=== PATIENT | male | born 1970 | race Caucasian/White ===

== ENCOUNTER 2017-12-24 15:31 | Emergency (ER) | payer BC ==
--- NOTE | 2017-12-24 15:42 | PDOC ---
Rapid Medical Evaluation Time Seen by Provider: 12/24/17 15:37 Medical Evaluation: Allergies Allergy/AdvReac Type Severity Reaction Status Date / Time No Known Allergies Allergy Verified 04/22/16 10:41 I have performed a brief in-person evaluation of this patient. The patient presents with a chief complaint of: mild anterior chest pain with a heart "flutter" for the past few days. Pertinent physical exam findings: RRR without m/g/r I have ordered the following: labs, EKG, CXR The patient will proceed to the ED for further evaluation.
[2017-12-24 15:49] VITALS: TEMP 98.6; BMI 25.1
--- NOTE | 2017-12-24 16:00 | PDOC ---
History of Present Illness - General Chief Complaint: Chest Pain Stated Complaint: CHEST DISCOMFORT Time Seen by Provider: 12/24/17 15:37 - History of Present Illness Initial Comments: 12/24/17 15:59 47 yo M with h/o DJD and GERD who p/w chest pain. Pt. reports acute palpitations and L sided, sharp chest pain beginning yesterday evening. Chest pain is intermittent, occurring sporadically, lasting for seconds and resolving with no identifiable trigger or alleviator.Reports chest pain at exertion with movement ( moving tables). Chest pain now resolved for past 2-3 hours. States that chest pain is different substernal epigastric pain that pt. has experienced in past. Reports chronic non productive cough and wheezing. Denies F /C, N/V, SOB, orthopnea, abdominal pain, diarrhea, constipation, urinary complaints, weakness, lightheadedness, sensory change. Denies h/o ACS/MO, stent placement, CABG, stress testing. Reports normal holter monitor testing years ago. Reports h/o cardiac palpitations during adolescence with neg workup. Does not f/w cardiology. 10 ppd tobacco use. Occasional alcohol use 1 x /week. Denies illicit drug use. Denies h/o endoscopy. Denies h/o DVT/PE, malignancy, hormonal use, pleuritic chest pain, hemoptysis, leg swelling, recent immobilization/travel, surgery or trauma within 4-6 weeks. 10 cups of tea/day. 16 oz coffe/day. Past History - Past Medical History Allergies/Adverse Reactions: Allergies Allergy/AdvReac Type Severity Reaction Status Date / Time No Known Allergies Allergy Verified 12/24/17 15:46 Home Medications: Ambulatory Orders Clonazepam [Klonopin] 2 mg PO DAILY 01/16/16 Albuterol Sulfate Inhaler - [Ventolin HFA Inhaler -] 2 inh PO Q4H #1 inh Cardiac Disorders: Yes (HEART MURMUR.) COPD: No Psychiatric Problems: Yes (ANXIETY.) - Suicide/Smoking/Psychosocial Hx Smoking History: Current every day smoker Have you smoked in the past 12 months: Yes Number of Cigarettes Smoked Daily: 10 Information on smoking cessation initiated: No 'Breaking Loose' booklet given: 04/22/16 Hx Alcohol Use: Yes (2x week) Drug/Substance Use Hx: No Substance Use Type: Alcohol Review of Systems - Review of Systems Comments:: 12/24/17 15:55 GENERAL/CONSTITUTIONAL: No fever or chills. No weakness. HEAD, EYES, EARS, NOSE AND THROAT: No change in vision. No ear pain or discharge. No sore throat. CARDIOVASCULAR: + chest pain. No shortness of breath RESPIRATORY: No cough, wheezing, or hemoptysis. GASTROINTESTINAL: No nausea, vomiting, diarrhea or constipation. GENITOURINARY: No dysuria, frequency, or change in urination. MUSCULOSKELETAL: No joint or muscle swelling or pain. No neck or back pain. SKIN: No rash NEUROLOGIC: No headache, vertigo, loss of consciousness, or change in strength/ sensation. ENDOCRINE: No increased thirst. No abnormal weight change HEMATOLOGIC/LYMPHATIC: No anemia, easy bleeding, or history of blood clots. ALLERGIC/IMMUNOLOGIC: No hives or skin allergy. *Physical Exam - Vital Signs Last Vital Signs Temp Pulse Resp BP Pulse Ox 98.6 F 74 19 119/80 99 12/24/17 15:46 12/24/17 15:46 12/24/17 15:46 12/24/17 15:46 12/24/17 15:46 - Physical Exam Comments: 12/24/17 15:56 GENERAL: Awake, alert, and fully oriented, in no acute distress HEAD: No signs of trauma, normocephalic, atraumatic EYES: PERRLA, EOMI, sclera anicteric, conjunctiva clear ENT: Hearing grossly normal, nares patent, oropharynx clear without exudates. Moist mucosa NECK: Normal ROM, supple, no lymphadenopathy, JVD, or masses LUNGS: No distress, speaks full sentences, clear to auscultation bilaterally HEART: Regular rate and rhythm, normal S1 and S2, no murmurs, rubs or gallops, peripheral pulses normal and equal bilaterally. ABDOMEN: Soft, nontender, normoactive bowel sounds. No guarding, no rebound. No masses. Neg CVA ttp. EXTREMITIES : Normal inspection, Normal range of motion, no edema. No clubbing or cyanosis. SKIN: Warm, Dry, normal turgor, no rashes or lesions noted ED Treatment Course - LABORATORY CBC & Chemistry Diagram: 12/24/17 15:55 12/24/17 15:55 - ADDITIONAL ORDERS Additional order review: Laboratory Results 12/24/17 12/24/17 16:35 15:55 Sodium 139 Potassium 4.5 Chloride 104 Carbon Dioxide 29 Anion Gap 6 L BUN 16 Creatinine 1.2 Creat Clearance w eGFR > 60 Random Glucose 88 Calcium 8.9 Total Bilirubin 0.3 AST 21 ALT 30 Alkaline Phosphatase 68 Creatine Kinase 115 Troponin I < 0.02 Total Protein 7.2 Albumin 3.8 TSH 1.51 12/24/17 15:55 RBC 4.74 MCV 93.7 MCHC 34.2 RDW 13.5 MPV 8.7 Neutrophils % 60.6 Lymphocytes % 27.6 Monocytes % 10.9 H Eosinophils % 0.6 Basophils % 0.3 Medical Decision Making - Medical Decision Making 12/24/17 16:03 47 yo M with h/o DJD and GERD who arrives from [facility] w/ acute palpitations and intermittent L sided, sharp chest pain beginning yesterday evening. + chest pain at exertion( now resolved for past 2-3 hours).+ chronic non productive cough and wheezing. Denies F/C, N/V, SOB, orthopnea, abdominal pain, diarrhea, constipation, urinary complaints, weakness, lightheadedness, sensory change. Denies h/o ACS/MO, stent placement, CABG, stress testing, or cardiology. Reports normal holter monitor testing years ago. 10 ppd tobacco use. HDS. Physical exam unremarkable. ACS/MO r/o. Will assess for underlying cardiac dysarrythmias vs. electrolyte abnormalities. Differential also includes PNA, COPD exacerbation. Low risk PE based on Weils criteria. Palpitations could be 2/ 2 excessive caffeine intake. ED Course: CBC, CMP, Cardiac Pr, TSH EKG, CXR 12/24/17 16:51 CBC, CMP: Unremarkable EKG: NSR with normal interval duration and axis. No RONNI changes, absent RONNI, or STD. Trop: Neg 12/24/17 17:36 TSH: Unremarkable 12/24/17 18:07 CXR: Unremarkable on preliminary read. Pt. stable and ready for d/c with return precautions. *DC/Admit/Observation/Transfer Diagnosis at time of Disposition: Palpitations Chest pain Qualifiers: Chest pain type: other chest pain Qualified Code(s): R07.89 - Other chest pain ; R07.8 - Other chest pain - Referrals Referrals: Alan Nash MD [Staff Physician] - - Patient Instructions Printed Discharge Instructions: DI for Atypical Chest Pain, DI for Palpitations Additional Instructions: Please return to the emergency department with any new or worsening symptoms or concerns. Please follow up with your primary care physician within 72 hours. Please follow up with cardiology within 1 week. - Post Discharge Activity - Attestations Physician Attestion: 12/24/17 15:56 I attest to the information provided in this note.
--- NOTE | 2017-12-24 16:07 | PDOC ---
Attending Attestation - HPI HPI: 12/24/17 17:18 47 yo male with history of GERD who presents to the ED complaining of chest pain that began yesterday. States his chest pain is intermittent, lasting for seconds at a time, described as a "twinge". He also reports associated palpitations, nonproductive cough and wheezing. He does endorse caffeine consumption- states he drinks 16 oz of coffee and 10 cups of tea daily. No fever , chills, nausea, vomiting, or diaphoresis. No lightheadedness or SOB. Endorses cigarette smoking, no recent travel or long periods of immobilization. - Physicial Exam PE: 12/24/17 17:21 GENERAL: Awake, alert, and fully oriented, in no acute distress HEAD: No signs of trauma EYES: PERRLA, EOMI, sclera anicteric, conjunctiva clear ENT: Auricles normal inspection, hearing grossly normal, nares patent, oropharynx clear without exudates. Moist mucosa NECK: Normal ROM, supple, no lymphadenopathy, JVD, or masses LUNGS: Breath sounds equal, clear to auscultation bilaterally. No wheezes, and no crackles HEART: Regular rate and rhythm, normal S1 and S2, no murmurs, rubs or gallops ABDOMEN: Soft, nontender, normoactive bowel sounds. No guarding, no rebound. No masses EXTREMITIES: Normal range of motion, no edema. No clubbing or cyanosis. No cords, erythema, or tenderness NEUROLOGICAL: Cranial nerves II through XII grossly intact. Normal speech, normal gait SKIN: Warm, Dry, normal turgor, no rashes or lesions noted. Documentation prepared by Nataliya Farrell, acting as medical doctor for Allyson Singh DO. <Nataliya Farrell - Last Filed: 12/24/17 17:57> - Resident Resident Name: Edmundo Clemons - ED Attending Attestation I have performed the following: I have examined & evaluated the patient, The case was reviewed & discussed with the resident, I agree w/resident's findings & plan, Exceptions are as noted - Medical Decision Making 12/24/17 16:07 I, Dr. Allyson Singh DO, attest that this document has been prepared under my direction and personally reviewed by me in its entirety. I further attest, that it accurately reflects all work, treatment, procedures and medical decision -making performed by me. 12/24/17 18:03 a/p: 47yo male with recent palpitations and fluttering in the chest -recent increased caffeine use and decreased water intake -drinking 16oz coffee a day plus 10 cups black caffeinated tea -suspect caffeine induced palpitaitons -will check tsh, labs, trop, cbc/chem -ekg -cxr 12/24/17 18:05 no PE risk factors perc negative 12/24/17 18:06 normal tsh, normal trop, cxr clear, no acute ekg changes <Allyson Singh - Last Filed: 12/24/17 18:21> Heart Score/ECG Review - ECG Intrepretation Comment:: 12/24/17 18:05 sinus at 81, nl axis, nl interval, no acute st/t wave findings <Allyson Singh - Last Filed: 12/24/17 18:21>
[2017-12-24 16:15] LABS: BASO % 0.3 % (0-2.0); EOS % 0.6 % (0-4.5); HEMATOCRIT 44.5 % (35.4-49); HEMOGLOBIN 15.2 GM/dL (11.7-16.9); LYMPH % 27.6 % (8-40); MCHC 34.2 g/dl (32.0-35.9); MEAN CELL VOLUME 93.7 fl (80-96); MEAN PLT VOLUME 8.7 fl (7.5-11.1); MONO % 10.9 % (3.8-10.2); NEUT % 60.6 % (42.8-82.8); PLATELET COUNT 208 K/MM3 (134-434); RBC 4.74 M/mm3 (4.00-5.60); RDW 13.5 % (11.9-15.9); WHITE BLOOD COUNT 5.3 K/mm3 (4.0-10.0)
[2017-12-24 16:37] LABS: ALBUMIN 3.8 g/dl (3.4-5.0); ANION GAP 6 (8-16); BILIRUBIN,TOTAL 0.3 mg/dL (0.2-1.0); BLOOD UREA NITROGEN 16 mg/dL (7-18); CALCIUM 8.9 mg/dL (8.5-10.1); CHLORIDE 104 mmol/L (98-107); CO2 29 mmol/L (21-32); CREATININE 1.2 mg/dL (0.7-1.3); GLUCOSE,RANDOM 88 mg/dL (74-106); POTASSIUM 4.5 mmol/L (3.5-5.1); SGOT/AST 21 U/L (15-37); SGPT/ALT 30 U/L (12-78); SODIUM 139 mmol/L (136-145); TOT PROT 7.2 g/dl (6.4-8.2)
[2017-12-24 16:39] LABS: ALK PHOS 68 U/L (45-117)
[2017-12-24 18:28] VITALS: BP 118/60; PULSE 70
--- NOTE | 2017-12-25 11:06 | EKG ---
Test Reason : Blood Pressure : / mmHG Vent. Rate : 081 BPM Atrial Rate : 081 BPM P-R Int : 132 ms QRS Dur : 084 ms QT Int : 362 ms P-R-T Axes : 064 037 031 degrees QTc Int : 420 ms NORMAL SINUS RHYTHM WITH SINUS ARRHYTHMIA POSSIBLE LEFT ATRIAL ENLARGEMENT BORDERLINE ECG NO PREVIOUS ECGS AVAILABLE Confirmed by PILY CHURCH, ANTON ([id number]) on 12/25/2017 11:06:19 AM Referred By: Confirmed By:ANTON NASCIMENTO MD
== END 2017-12-24 18:28 | disposition home or self-care (01) ==
LOC: JER 15:31
DX: R00.2 Palpitations (principal); R07.89 Other chest pain; M19.90 Unspecified osteoarthritis, unspecified site; K21.9 Gastro-esophageal reflux disease without esophagitis
CPT/HCPCS: 36415; 71046-TC-FY; 80053; 82550; 84443; 84484; 85025; 93005; 93010; 99282-25

== ENCOUNTER 2018-02-26 16:18 | Emergency (ER) | payer BC ==
[2018-02-26 16:24] VITALS: BP 137/88; PULSE 83; TEMP 98; BMI 25.7
[2018-02-26] MEDS ORDERED: ALPRAZolam 0.25 MG TABLET PO ONE (17:03)
--- NOTE | 2018-02-26 17:04 | PDOC ---
History of Present Illness - General Chief Complaint: Psychiatric Stated Complaint: ALLERGIC REACTION Time Seen by Provider: 02/26/18 16:35 History Source: Patient Exam Limitations: No Limitations - History of Present Illness Initial Comments: 02/26/18 16:59 This is a 48-year-old male with past medical history of bipolar disorder and depression presents emergency Department with increased anxiety status post initiation of Lexapro. Patient states his primary doctor started him on Lexapro 3 days ago and since started taking the medications had an increase in his anxiety level. Patient denies any suicidal ideation, belief that there'll be better off if she were , belief that his friends and family would be better if he were . Patient states a profound belief in God. Patient states he does have a psychiatrist [place] who he has not seen approximately 1 year. He denies any headaches, chest pain, palpitations, nausea , vomiting, dizziness. Past History - Past Medical History Allergies/Adverse Reactions: Allergies Allergy/AdvReac Type Severity Reaction Status Date / Time No Known Allergies Allergy Verified 02/26/18 16:19 Home Medications: Ambulatory Orders Clonazepam [Klonopin] 2 mg PO DAILY 01/16/16 Albuterol Sulfate Inhaler - [Ventolin HFA Inhaler -] 2 inh PO Q4H #1 inh Cardiac Disorders: Yes (HEART MURMUR.) COPD: No Psychiatric Problems: Yes (ANXIETY.) - Suicide/Smoking/Psychosocial Hx Smoking History: Current every day smoker Have you smoked in the past 12 months: Yes Number of Cigarettes Smoked Daily: 10 Information on smoking cessation initiated: Yes 'Breaking Loose' booklet given: 02/26/18 Hx Alcohol Use: Yes (2x week) Drug/Substance Use Hx: No Substance Use Type: Alcohol Review of Systems - Review of Systems Able to Perform ROS?: Yes Is the patient limited Hebrew proficient: No Constitutional: No: Symptoms Reported HEENTM: No: Symptoms Reported Respiratory: No: Symptoms reported Cardiac (ROS): No: Symptoms Reported ABD/GI: No: Symptoms Reported : No: Symptoms Reported Musculoskeletal: No: Symptoms Reported Integumentary: No: Symptoms Reported Neurological: No: Symptoms reported Psychiatric: Yes: Anxiety Endocrine: No: Symptoms Reported Hematologic/Lymphatic: No: Symptoms Reported *Physical Exam - Vital Signs Last Vital Signs Temp Pulse Resp BP Pulse Ox 98.0 F 83 18 137/88 100 02/26/18 16:20 02/26/18 16:20 02/26/18 16:20 02/26/18 16:20 02/26/18 16:20 - Physical Exam General Appearance: Yes: Appropriately Dressed. No: Apparent Distress HEENT: positive: Normal ENT Inspection Neck: positive: Trachea midline, Supple Respiratory/Chest: positive: Lungs Clear, Normal Breath Sounds. negative: Respiratory Distress, Accessory Muscle Use Cardiovascular: positive: Regular Rhythm, Regular Rate. negative: Murmur Gastrointestinal/Abdominal: positive: Normal Bowel Sounds, Soft. negative: Tender Musculoskeletal: positive: Normal Inspection. negative: CVA Tenderness Extremity: positive: Normal Inspection Integumentary: positive: Normal Color, Dry, Warm Neurologic: positive: Alert, Normal Response Medical Decision Making - Medical Decision Making 02/26/18 17:03 A/P: 48-year-old male with anxiety Normal physical exam. I contacted Dr. Dodd's office who states the patient has not been seen there in 4 years. At that time the patient was placed on Depakote for mood stabilization. Was able to secure an appointment on 03/16 at noon for the patient. Patient verbalizes understanding of need to continue with more psychiatric evaluation at this time. I will also give the patient a referral for Dr. Temple if he would like to secure an appointment sooner than that. I will discharge the patient home to follow-up with psychiatrist. *DC/Admit/Observation/Transfer Diagnosis at time of Disposition: Anxiety - Discharge Dispostion Disposition: HOME Condition at time of disposition: Stable Decision to Admit order: No - Referrals Referrals: ON STAFF,NOT [Primary Care Provider] - Timothy Temple MD [Staff Physician] - - Patient Instructions Additional Instructions: You have an appointment with Dr. Dodd on March 16 at noon. Given given a referral for Dr. Temple who is a psychiatrist. Please call to make an appointment should she need between now and the . Return to emergency department for any increased anxiety, depression, suicidal thoughts, or any other concerns. - Post Discharge Activity
[2018-02-26] MEDS ORDERED: ALPRAZolam 0.25 MG TABLET ONE (17:05)
== END 2018-02-26 17:55 | disposition home or self-care (01) ==
LOC: JERFT 16:18
DX: F41.9 Anxiety disorder, unspecified (principal); F31.9 Bipolar disorder, unspecified
CPT/HCPCS: 99281-25

== ENCOUNTER 2019-03-24 16:11 | Emergency (ER) | payer BC ==
[2019-03-24 16:16] VITALS: BP 113/85; PULSE 107; TEMP 98.7; BMI 26.4
--- NOTE | 2019-03-24 16:16 | PDOC ---
Rapid Medical Evaluation Chief Complaint: Pain Time Seen by Provider: 03/24/19 16:12 Medical Evaluation: Allergies Allergy/AdvReac Type Severity Reaction Status Date / Time No Known Allergies Allergy Verified 02/26/18 16:19 03/24/19 16:14 Pt c/o: left knee, felt a pop while walking the other day, denies radiation of pain, pending MRI due to continual pain Pt on brief exam: ambulatory, no erythema or bruising. FROM noted Pt ordered for: xray pt to proceed to the ED Discharge Disposition - Diagnosis Knee pain Qualifiers: Chronicity: chronic Laterality: left Qualified Code(s): M25.562 - Pain in left knee - Discharge Dispostion Disposition: HOME Condition at time of disposition: Stable - Referrals Referrals: Fede Diggs MD [Staff Physician] - 3 days - Patient Instructions Printed Discharge Instructions: DI for Knee Pain Additional Instructions: Thank you for choosing [facility]. It was a pleasure taking care of you. Keep the knee immbolizer on until you get MRI done of your knee Continue follow-up with your orthopedic doctor Return to the Emergency Department if your symptoms worsen or persist or have other concerning symptoms. - Post Discharge Activity
--- NOTE | 2019-03-24 16:39 | PDOC ---
History of Present Illness - General Chief Complaint: Pain Stated Complaint: LT KNEE PAIN Time Seen by Provider: 03/24/19 16:12 History Source: Patient Exam Limitations: No Limitations Past History - Past Medical History Allergies/Adverse Reactions: Allergies Allergy/AdvReac Type Severity Reaction Status Date / Time No Known Allergies Allergy Verified 03/24/19 16:16 Home Medications: Ambulatory Orders Clonazepam [Klonopin] 2 mg PO DAILY 01/16/16 Albuterol Sulfate Inhaler - [Ventolin HFA Inhaler -] 2 inh PO Q4H #1 inh Cardiac Disorders: Yes (HEART MURMUR.) COPD: No Psychiatric Problems: Yes (ANXIETY.) - Suicide/Smoking/Psychosocial Hx Smoking History: Current every day smoker Have you smoked in the past 12 months: Yes Number of Cigarettes Smoked Daily: 7 Information on smoking cessation initiated: No 'Breaking Loose' booklet given: 02/26/18 Hx Alcohol Use: No Drug/Substance Use Hx: No Substance Use Type: Alcohol *Physical Exam - Vital Signs Last Vital Signs Temp Pulse Resp BP Pulse Ox 98.7 F 107 H 18 113/85 100 03/24/19 16:13 03/24/19 16:13 03/24/19 16:13 03/24/19 16:13 03/24/19 16:13 - Physical Exam General Appearance: No: Apparent Distress Comments:: LLE pulses intact 03/24/19 16:32 Musculoskeletal: positive: Normal Inspection, Other (FROM of L knee, no joint laxity noted, no joint effusion or deformity noted, negative Rena test, Negative apley test). negative: Decreased Range of Motion Extremity: positive: Normal Capillary Refill Integumentary: positive: Normal Color. negative: Swelling, Ecchymosis, Bruising Neurologic: positive: Alert, Normal Mood/Affect, Other (normal gait noted) Medical Decision Making - Medical Decision Making 49 y/o M hx of arthritis presents for wanting repeat L knee xray. Patient mentions injuring L knee 1 month ago; states he was walking up the stairs when he suddenly felt a popping sensation. Patient followed with orthopedic, Dr. Diggs , who did xrays at the time, which were normal. Patient is scheduled for MRI of L knee 03/27 (states it got delayed due to personal issues). Is requesting L knee xray as he will sometimes hear the popping sensation when ambulating. Denies new trauma, fever, redness, numbness. Explained no need for xray at this time No significant joint laxity noted Placed in knee immobilizer and patient feeling a lot more comfortable 03/24/19 16:36 *DC/Admit/Observation/Transfer Diagnosis at time of Disposition: Knee pain Qualifiers: Chronicity: chronic Laterality: left Qualified Code(s): M25.562 - Pain in left knee; G89.29 - Other chronic pain - Discharge Dispostion Disposition: HOME Condition at time of disposition: Stable Decision to Admit order: No - Referrals Referrals: Fede Diggs MD [Staff Physician] - 3 days - Patient Instructions Printed Discharge Instructions: DI for Knee Pain Additional Instructions: Thank you for choosing Health system. It was a pleasure taking care of you. Keep the knee immbolizer on until you get MRI done of your knee Continue follow-up with your orthopedic doctor Return to the Emergency Department if your symptoms worsen or persist or have other concerning symptoms. - Post Discharge Activity
== END 2019-03-24 16:35 | disposition home or self-care (01) ==
LOC: JERFT 16:11
DX: M25.562 Pain in left knee (principal); G89.29 Other chronic pain; F17.210 Nicotine dependence, cigarettes, uncomplicated; R01.1 Cardiac murmur, unspecified; F41.9 Anxiety disorder, unspecified
CPT/HCPCS: 99281-25

== ENCOUNTER 2019-04-27 13:51 | Emergency (ER) | payer BC, OTHER ==
[2019-04-27 13:57] VITALS: BP 113/80; PULSE 91; TEMP 98.6; BMI 27.1
--- NOTE | 2019-04-27 16:48 | PDOC ---
History of Present Illness - General Chief Complaint: Shortness of Breath Stated Complaint: SOB Time Seen by Provider: 04/27/19 15:23 History Source: Patient Exam Limitations: No Limitations - History of Present Illness Initial Comments: 04/27/19 16:55 49 y/o male presents to the ED with c/o cough, wheezing and episodic shortness of breath with coughing attacks worse at night. Pt states has had s/s in the past and was told he had bronchitis and responded well to azithromycin. Pt denies CP, palpitations, nausea, dizziness, fever, or chills. Timing/Duration: reports: other (3 days) Severity: reports: moderate Possible Cause: Yes: occasional episodes Modifying Factors: improves with: coughing Associated Symptoms: reports: cough, shortness of breath, wheezing Past History - Travel Traveled outside of the country in the last 30 days: No Close contact w/someone who was outside of country & ill: No - Past Medical History Allergies/Adverse Reactions: Allergies Allergy/AdvReac Type Severity Reaction Status Date / Time No Known Allergies Allergy Verified 04/27/19 13:54 Home Medications: Ambulatory Orders Clonazepam [Klonopin] 2 mg PO DAILY 01/16/16 Albuterol Sulfate Inhaler - [Ventolin HFA Inhaler -] 2 inh PO Q4H #1 inh Albuterol Sulfate Inhaler - [Ventolin HFA Inhaler -] 1 - 2 inh PO QID PRN #1 inhaler 04/27/19 Azithromycin [Zithromax Tri-Tutu (3 DAYS) -] 500 mg PO DAILY #3 tablet 04/27/19 predniSONE [Deltasone -] 40 mg PO DAILY #8 tablet 04/27/19 Cardiac Disorders: Yes (HEART MURMUR.) COPD: No Psychiatric Problems: Yes (ANXIETY.) - Immunization History Immunization Up to Date: No - Suicide/Smoking/Psychosocial Hx Smoking History: Never smoked Have you smoked in the past 12 months: Yes Number of Cigarettes Smoked Daily: 7 'Breaking Loose' booklet given: 02/26/18 Hx Alcohol Use: No Drug/Substance Use Hx: No Substance Use Type: Alcohol Patient Lives Alone: No Lives with/in: spouse/SO Respiratory Specific PMHX - Complaint Specific PMHX Bronchitis: Yes Review of Systems - Review of Systems Able to Perform ROS?: Yes Constitutional: No: Symptoms Reported HEENTM: No: Symptoms Reported Respiratory: Yes: Cough, Shortness of Breath, Wheezing Cardiac (ROS): No: Symptoms Reported ABD/GI: No: Symptoms Reported : No: Symptoms Reported Musculoskeletal: No: Symptoms Reported Integumentary: No: Symptoms Reported Neurological: No: Symptoms reported Endocrine: No: Symptoms Reported Hematologic/Lymphatic: No: Symptoms Reported *Physical Exam - Vital Signs Last Vital Signs Temp Pulse Resp BP Pulse Ox 98.6 F 91 H 18 113/80 99 04/27/19 13:55 04/27/19 13:55 04/27/19 13:55 04/27/19 13:55 04/27/19 13:55 - Physical Exam General Appearance: Yes: Nourished, Appropriately Dressed. No: Apparent Distress HEENT: negative: Pale Conjunctivae Neck: positive: Normal Thyroid, Supple Respiratory/Chest: positive: Wheezing (coarse breath sounds on end expiration bilaterally left greater than right) Cardiovascular: positive: Regular Rhythm, Regular Rate. negative: Murmur Gastrointestinal/Abdominal: positive: Soft. negative: Tenderness Extremity: positive: Normal Inspection Integumentary: positive: Normal Color, Warm, Moist Neurologic: positive: Motor Strength 5/5 (ambulatory) ED Treatment Course - RADIOLOGY Radiology Studies Ordered: Category Date Time Status CHEST PA & LAT [RAD] Stat Radiology 04/27/19 15:56 Ordered Medical Decision Making - Medical Decision Making 04/27/19 16:01 CC: cough and wheezing with sob after coughing episodes worse at night. Exam: coarse breath sounds with intermittent wheezing, vss, no accessory muscle usage Plan: cxr 04/27/19 16:53 No acute process. Pt is a 1/2 PPD smoker, will treat for acute wheezy bronchitis *DC/Admit/Observation/Transfer Diagnosis at time of Disposition: Acute wheezy bronchitis - Discharge Dispostion Disposition: HOME Condition at time of disposition: Good - Prescriptions Prescriptions: Albuterol Sulfate Inhaler - [Ventolin HFA Inhaler -] 1 - 2 inh PO QID PRN #1 inhaler PRN Reason: Wheezing Azithromycin [Zithromax Tri-Tutu (3 DAYS) -] 500 mg PO DAILY #3 tablet predniSONE [Deltasone -] 40 mg PO DAILY #8 tablet - Referrals Referrals: Sushant Jackman MD [Primary Care Provider] - - Patient Instructions Printed Discharge Instructions: DI for Acute Bronchitis Additional Instructions: Take prednisone and azithromycin as prescribed until completed. Please use inhaler as needed for wheezing please avoid smoking and utilize other cessation modalities if needed such as Nicorette gum. - Post Discharge Activity
== END 2019-04-27 17:11 | disposition home or self-care (01) ==
LOC: JER 13:51
DX: J20.9 Acute bronchitis, unspecified (principal)
CPT/HCPCS: 71046-TC-FY; 99281-25

== ENCOUNTER 2019-08-17 15:45 | Inpatient (IN) | payer OTHER ==
[2019-08-17 18:53] VITALS: BMI 27.8
--- NOTE | 2019-08-17 20:16 | HP ---
COWS - Scale Resting Pulse: 1= [place] 81-100 Sweatin=Flushed/Facial Moisture Restless Observation: 3= Extraneous Movement Pupil Size: 1= Pupils >than Normal Bone or Joint Aches: 2= Severe Diffuse Aches Runny Nose/ Eye Tearin= Runny Nose/Eyes GI Upset > 30mins: 2= Nausea/Diarrhea Tremor Observation: 2= Slight Tremor Visible Yawning Observation: 1= 1-2x During Session Anxiety or Irritability: 1=Feels Anxious/Irritable Goose Flesh Skin: 3=Piloerection COWS Score: 20 CIWA Score - Admission Criteria OASAS Guidelines: Admission for Medically Managed Detox: Requires at least one of the followin. CIWA greater than 12 2. Seizures within the past 24 hours 3. Delirium tremens within the past 24 hours 4. Hallucinations within the past 24 hours 5. Acute intervention needed for co occurring medical disorder 6. Acute intervention needed for co occurring psychiatric disorder 7. Severe withdrawal that cannot be handled at a lower level of care (continued vomiting, continued diarrhea, abnormal vital signs) requiring intravenous medication and/or fluids 8. Admitting History and Physical - Smoking History Smoking history: Never smoked Have you smoked in the past 12 months: Yes Aproximately how many cigarettes per day: 7 - Alcohol/Substance Use Hx Alcohol Use: No Admission ROS [facility] Chief Complaint: oxycontin detox Allergies/Adverse Reactions: Allergies Allergy/AdvReac Type Severity Reaction Status Date / Time No Known Allergies Allergy Verified 08/17/19 18:39 History of Present Illness: 49 yo with a several year history of prescription oxycontin use, pt states his doctor has been slowly trying to wean him off as an outpt. for the last year. Pt goes to [facility] for services, and was asked to come to detox to help him get off oxycontin. pt has h/o alcohol and cocaine use disorders> resolved Pt has h/o knee, back pain-awaiting knee surgery DUR: Dr. Jackman prescriber- #30 of oxycontin ER rec'd on 08/13, pt has also rec' d percocets #40 on 08/04 Pt signed release to inform Dr. Jackman of this admission - Ebola screening Have you traveled outside of the country in the last 21 days: No (N) Have you had contact with anyone from an Ebola affected area: No Do you have a fever: No - Review of Systems Constitutional: No Symptoms Reported EENT: reports: No Symptoms Reported Respiratory: reports: No Symptoms reported Cardiac: reports: No Symptoms Reported GI: reports: No Symptoms Reported : reports: No Symptoms Reported Musculoskeletal: reports: No Symptoms Reported Integumentary: reports: No Symptoms Reported Neuro: reports: No Symptoms reported Endocrine: reports: No Symptoms Reported Hematology: reports: No Symptoms Reported Psychiatric: reports: No Sypmtoms Reported Other Systems: Reviewed and Negative Patient History - Patient Medical History Hx Chronic Obstructive Pulmonary Disease (COPD): No Hx Cardiac Disorders: Yes (HEART MURMUR.) Hx Depression: Yes Hx Bipolar Disorder: Yes - PPD History PPD to be Administered?: Yes - Smoking Cessation Smoking history: Never smoked Have you smoked in the past 12 months: Yes Aproximately how many cigarettes per day: 10 Hx Chewing Tobacco Use: No Initiated information on smoking cessation: Yes 'Breaking Loose' booklet given: 08/17/19 - Substances abused Oxycontin Substance route: Oral Frequency: Daily Amount used: 15 mg Age of first use: 44 Date of last use: 08/17/19 Admission Physical Exam BHS - Vital Signs Vital Signs: Vital Signs - 24 hr 08/17/19 18:38 Temperature 98.2 F Pulse Rate 81 Respiratory 16 Rate Blood Pressure 136/86 - Physical General Appearance: Yes: Moderate Distress HEENTM: Yes: Within Normal Limits, EOMI, Hearing grossly Normal Respiratory: Yes: Within Normal Limits, Chest Non-Tender, Lungs Clear Neck: Yes: Within Normal Limits, No masses,lesions,Nodules Cardiology: Yes: Within Normal Limits, Regular Rhythm, Regular Rate Abdominal: Yes: Within Normal Limits, Normal Bowel Sounds Genitourinary: Yes: Within Normal Limits Back: Yes: Within Normal Limits Musculoskeletal: Yes: Within Normal Limits Extremities: Yes: Within Normal Limits Neurological: Yes: Within Normal Limits Integumentary: Yes: Within Normal Limits Lymphatic: Yes: Within Normal Limits - Diagnostic (1) Opioid use disorder Current Visit: Yes Status: Acute (2) Tobacco use disorder Current Visit: Yes Status: Acute (3) Knee pain Current Visit: No Status: Acute Qualifiers: Chronicity: chronic Laterality: left Qualified Code(s): M25.562 - Pain in left knee; G89.29 - Other chronic pain (4) Depression Current Visit: Yes Status: Acute (5) Bipolar 1 disorder Current Visit: Yes Status: Acute Breathalyzer - Breathalyzer Breathalyzer: 0 Urine Drug Screen - Test Device Lot number: [id number] Expiration date: 04/21/21 - Control Is test valid?: Yes - Results Drug screen NEGATIVE: No Urine drug screen results: OXY-Oxycodone Inpatient Rehab Admission - Rehab Decision to Admit Inpatient rehab admission?: No
[2019-08-17] MEDS ORDERED: ACETAMINOPHEN 325 MG TABLET (FP) PO PRN ×2 (20:24)
[2019-08-17] MEDS ORDERED: BACLOFEN 10 MG TABLET (FP) PO PRN (20:24)
[2019-08-17] MEDS ORDERED: MAG HYDROX/AL HYDROX/SIMETH 30 ML UNIT-DOSE CUP PO PRN (20:24)
[2019-08-17] MEDS ORDERED: MAGNESIUM CITRATE 300 ML BOTTLE PO PRN (20:24)
[2019-08-17] MEDS ORDERED: METHADONE HCL 10 MG TABLET (FOR DETOX USE ONLY) PO ONE (20:24)
[2019-08-17] MEDS ORDERED: MELATONIN 5 MG TABLETS PO PRN (20:24)
[2019-08-17] MEDS ORDERED: MAGNESIUM HYDROX 2400MG/30ML ORAL SUSPENSION 30 ML CUP PO PRN (20:24)
[2019-08-17] MEDS ORDERED: MENTHOL/PHENOL 1 EACH UD MM PRN (20:24)
[2019-08-17] MEDS ORDERED: IBUPROFEN 400 MG TABLET (FP) PO PRN (20:24)
[2019-08-17] MEDS ORDERED: NICOTINE POLACRILEX 2 MG GUM BUC PRN (20:24)
[2019-08-17] MEDS ORDERED: hydrOXYzine PAMOATE 25 MG CAPSULE (FP) PO PRN (20:24)
[2019-08-17] MEDS ORDERED: ALBUTEROL SO4 8 GM HFA INHALER IH PRN (20:27)
[2019-08-17] MEDS: clonazePAM 0.5 MG TABLET PO PRN (21:27)
[2019-08-17] MEDS: THIAMINE HCL 100 MG TABLET (FP) PO SCH (21:28)
[2019-08-17] MEDS ORDERED: LURASIDONE HCL 40 MG TABLET PO SCH (22:00)
[2019-08-17] MEDS ORDERED: MIRTAZAPINE 15 MG TABLET (FP) PO SCH (22:00)
--- NOTE | 2019-08-18 08:32 | CONSULT ---
[facility] Psychiatric Consult - Data Date of interview: 08/18/19 Admission source: [place] Identifying data: Mr Macario is a 49 years old single male , father of a 20 years old daughter, employed as logistics/shipper at [employer], domiciled seeking detox treatment for opioid Substance Abuse History: Reports history of oxycontin use. Refer to addiction counselor's summary for further information Medical History: Significant for heart murmur, arthritis both knees/back, herniated disc. Smokes 10 cigarettes daily Psychiatric History: Reports that his first psychiatric contact occured at age 12 when he and his siblings started receiving psychotherapy to cope with their mother's diagnosis of Schizophrenia. At age 15, he was diagnosed with MDD and started on Zoloft. At age 35, his diagnosis was revised to Bipolar Disorder. Reports receiving outpatient psychiatric treatment on & off over the years. He currently sees Dr Strong, a private psychiatrist at [place], [place] and he is prescribed Latuda 40 mg/hs, Remeron 15 mg/hs and Klonopin 0.5 mg/bid. Denies previous psychiatric hospitalization or suicidal attempt. At present, denies experiencing psychotic, manic or depressive symptoms, S/H ideations. However, reports feeling anxious and sleeping poorly Physical/Sexual Abuse/Trauma History: Denies history of abuse as a child ans DV relationship as an adult. No service Mental Status Exam - Mental Status Exam Alert and Oriented to: Time, Place, Person Cognitive Function: Fair Patient Appearance: Disheveled Mood: Anxious Affect: Appropriate Patient Behavior: Cooperative Speech Pattern: Clear Voice Loudness: Normal Thought Process: Intact, Goal Oriented Thought Disorder: Not Present Hallucinations: Denies Suicidal Ideation: Denies Homicidal Ideation: Denies Insight/Judgement: Poor Sleep: Poorly Appetite: Good Muscle strength/Tone: Normal Gait/Station: Normal Psychiatric Findings - Problem List ([place] 1, 2,3) (1) Bipolar II disorder Current Visit: Yes Status: Chronic (2) Substance-induced anxiety disorder Current Visit: Yes Status: Acute (3) Substance-induced sleep disorder Current Visit: Yes Status: Acute (4) Uncomplicated opioid dependence Current Visit: Yes Status: Acute (5) Nicotine dependence Current Visit: Yes Status: Chronic (6) Arthritis Current Visit: Yes Status: Chronic - Initial Treatment Plan Initial Treatment Plan: 1) Continue Latuda 40 mg po HS and Remeron 15 mg po HS. 2) Continue inpatient detoxification
[2019-08-18] MEDS ORDERED: METHADONE HCL 5 MG TABLET (FOR DETOX USE ONLY) ONE (09:19)
[2019-08-18] MEDS ORDERED: METHADONE HCL 10 MG TABLET (FOR DETOX USE ONLY) ONE (09:19)
--- NOTE | 2019-08-18 09:27 | PN ---
BHS COWS - Scale Resting Pulse: 0= [place] 80 or Below Sweatin= No chills or Flushing Restless Observation: 1= Difficult to Sit Still Pupil Size: 1= Pupils >than Normal Bone or Joint Aches: 2= Severe Diffuse Aches Runny Nose/ Eye Tearin= Nasal Congestion GI Upset > 30mins: 1= Stomach Cramp Tremor Observation of Outstretched Hands: 2= Slight Tremor Visible Yawning Observation: 1= 1-2x During Session Anxiety or Irritability: 2=Irritable/Anxious Goose Flesh Skin: 0=Smooth Skin COWS Score: 11 [facility] Progress Note (SOAP) Subjective: alert,irritable,anxious,interrupted sleep,pain in the body and back Objective: 08/18/19 09:26 Vital Signs Temperature 98.2 F 08/18/19 06:35 Pulse Rate 65 08/18/19 06:35 Respiratory Rate 20 08/18/19 06:35 Blood Pressure 121/83 08/18/19 06:35 O2 Sat by Pulse Oximetry (%) 08/18/19 09:26 labs pending Assessment: 08/18/19 09:27 withdrawal symptom Plan: continue detox methadone regimen
[2019-08-18] MEDS ORDERED: METHADONE (DETOX) 20 MG, METHADONE (DETOX) 5 MG PO ONE (10:00)
[2019-08-18 10:17] LABS: ALBUMIN 3.4 g/dl (3.4-5.0); BILIRUBIN,TOTAL 0.2 mg/dL (0.2-1); CALCIUM 9.1 mg/dL (8.5-10.1); CREATININE 1.1 mg/dL (0.55-1.3); POTASSIUM 4.3 mmol/L (3.5-5.1); TOT PROT 6.1 g/dl (6.4-8.2)
[2019-08-18] MEDS: PRENATAL VITAMINS W/ FOLIC ACID TABLET (FP) PO SCH (10:19)
[2019-08-18] MEDS: clonazePAM 0.5 MG TABLET PO PRN ×2 (10:22→22:09)
[2019-08-18 10:35] LABS: HEMATOCRIT 38.1 % (35.4-49); HEMOGLOBIN 12.9 GM/dL (11.7-16.9); MCH 31.4 pg (25.7-33.7); MCHC 33.9 g/dl (32.0-35.9); MEAN CELL VOLUME 92.6 fl (80-96); MEAN PLT VOLUME 9.4 fl (7.5-11.1); PLATELET COUNT 212 K/MM3 (134-434); RBC 4.11 M/mm3 (4.00-5.60); RDW 13.6 % (11.9-15.9); WHITE BLOOD COUNT 4.7 K/mm3 (4.0-10.0)
[2019-08-18] MEDS: BISMUTH SUBSALICYLATE 524 MG/30 ML UD PO PRN ×2 (13:35→18:52)
[2019-08-18] MEDS: LURASIDONE HCL 40 MG TABLET PO SCH (22:07)
[2019-08-18] MEDS: MIRTAZAPINE 15 MG TABLET (FP) PO SCH (22:08)
[2019-08-18] MEDS: THIAMINE HCL 100 MG TABLET (FP) PO SCH (22:08)
[2019-08-18] MEDS: MELATONIN 5 MG TABLETS PO PRN (22:08)
[2019-08-19] MEDS ORDERED: METHADONE HCL 10 MG TABLET (FOR DETOX USE ONLY) PO ONE (10:00)
[2019-08-19] MEDS: PRENATAL VITAMINS W/ FOLIC ACID TABLET (FP) PO SCH (10:29)
[2019-08-19] MEDS: clonazePAM 0.5 MG TABLET PO PRN ×2 (10:31→22:02)
--- NOTE | 2019-08-19 12:19 | PN ---
BHS CIWA - CIWA Score Nausea/Vomitin Muscle Tremors: 1-None Visible, but [place] Anxiety: 1-Mildly Anxious Agitation: 1-Slight > Activity Paroxysmal Sweats: 2 Orientation: 0-Oriented Tacttile Disturbances: 1-Very Mild Itch/Numbness Auditory Disturbances: 0-None Visual Disturbances: 0-None Headache: 0-None Present CIWA-Ar Total Score: 9 BHS Progress Note (SOAP) Subjective: interrupted sleep, sweats, nausea, diarrhea x1 last night Objective: 08/19/19 12:17 Vital Signs Temperature 97.9 F 08/19/19 09:39 Pulse Rate 73 08/19/19 09:39 Respiratory Rate 18 08/19/19 09:39 Blood Pressure 137/79 08/19/19 09:39 O2 Sat by Pulse Oximetry (%) Laboratory Tests 08/18/19 08/18/19 08/18/19 07:00 07:00 07:00 WBC 4.7 RBC 4.11 Hgb 12.9 Hct 38.1 MCV 92.6 MCH 31.4 MCHC 33.9 RDW 13.6 Plt Count 212 MPV 9.4 Sodium 143 Potassium 4.3 Chloride 110 H Carbon Dioxide 30 Anion Gap 3 L BUN 21.0 H Creatinine 1.1 Est GFR (CKD-EPI)AfAm 90.88 Est GFR (CKD-EPI)NonAf 78.41 Random Glucose 84 Calcium 9.1 Total Bilirubin 0.2 AST 14 L ALT 22 Alkaline Phosphatase 63 Total Protein 6.1 L Albumin 3.4 RPR Titer Nonreactive pt aox3 in nad lying in bed Assessment: 08/19/19 12:17 withdrawal sx's Plan: continue detox increase fluids imodium prn
[2019-08-19] MEDS: LURASIDONE HCL 40 MG TABLET PO SCH (22:03)
[2019-08-19] MEDS: MELATONIN 5 MG TABLETS PO PRN (22:03)
[2019-08-19] MEDS: THIAMINE HCL 100 MG TABLET (FP) PO SCH (22:03)
[2019-08-19] MEDS: MIRTAZAPINE 15 MG TABLET (FP) PO SCH (22:03)
[2019-08-20] MEDS ORDERED: METHADONE HCL 5 MG TABLET (FOR DETOX USE ONLY) ONE (09:13)
[2019-08-20] MEDS ORDERED: METHADONE HCL 10 MG TABLET (FOR DETOX USE ONLY) ONE (09:14)
[2019-08-20] MEDS ORDERED: METHADONE (DETOX) 10 MG, METHADONE (DETOX) 5 MG PO ONE (10:00)
[2019-08-20] MEDS: PRENATAL VITAMINS W/ FOLIC ACID TABLET (FP) PO SCH (10:06)
[2019-08-20] MEDS: clonazePAM 0.5 MG TABLET PO PRN ×2 (10:09→22:12)
--- NOTE | 2019-08-20 13:31 | PN ---
BHS COWS - Scale Resting Pulse: 0= [place] 80 or Below Sweatin= Chills/Flushing Restless Observation: 1= Difficult to Sit Still Pupil Size: 0= Normal to Room Light Bone or Joint Aches: 1= Mild Discomfort Runny Nose/ Eye Tearin= None GI Upset > 30mins: 0= None Tremor Observation of Outstretched Hands: 1= Tremor [place], Not Seen Yawning Observation: 1= 1-2x During Session Anxiety or Irritability: 2=Irritable/Anxious Goose Flesh Skin: 0=Smooth Skin COWS Score: 7 BHS Progress Note (SOAP) Subjective: sweats anxiety body aches restless Objective: 08/20/19 13:31 Vital Signs Temperature 97.9 F 08/20/19 09:44 Pulse Rate 74 08/20/19 09:44 Respiratory Rate 18 08/20/19 09:44 Blood Pressure 110/64 08/20/19 09:44 O2 Sat by Pulse Oximetry (%) aaox3 ambulating no acute distress Assessment: 08/20/19 13:31 withdrawals Plan: continue detox increase fluids
[2019-08-20] MEDS ORDERED: ONDANSETRON *ODT* 4 MG TABLET SL PRN (13:32)
[2019-08-20] MEDS: MIRTAZAPINE 15 MG TABLET (FP) PO SCH (22:11)
[2019-08-20] MEDS: THIAMINE HCL 100 MG TABLET (FP) PO SCH (22:11)
[2019-08-20] MEDS: LURASIDONE HCL 40 MG TABLET PO SCH (22:11)
--- NOTE | 2019-08-21 09:52 | PN ---
BHS Progress Note (SOAP) Subjective: pt states feeling better, here for OUD, on methadone detox protocol. O: Vital Signs - 24 hr 08/20/19 08/20/19 08/20/19 13:36 16:37 20:19 Temperature 98.1 F 98.2 F 97.6 F Pulse Rate 80 69 68 Respiratory 18 18 18 Rate Blood Pressure 134/78 129/77 120/68 08/21/19 08/21/19 08/21/19 00:30 03:30 06:00 Temperature 97.5 F L Pulse Rate 60 Respiratory 18 18 18 Rate Blood Pressure 111/63 08/21/19 09:39 Temperature 98.1 F Pulse Rate 76 Respiratory 18 Rate Blood Pressure 108/60 awake, alert, walking in hallway a/p: OUD- continue detox protocol. pt for d/c tomorrow. d/c order written. Pt would like to go to rehab- will discuss with counselor
[2019-08-21] MEDS ORDERED: METHADONE HCL 10 MG TABLET (FOR DETOX USE ONLY) PO ONE (10:00)
[2019-08-21] MEDS: PRENATAL VITAMINS W/ FOLIC ACID TABLET (FP) PO SCH (10:12)
[2019-08-21] MEDS: clonazePAM 0.5 MG TABLET PO PRN ×2 (10:16→22:07)
[2019-08-21] MEDS: THIAMINE HCL 100 MG TABLET (FP) PO SCH (22:05)
[2019-08-21] MEDS: MIRTAZAPINE 15 MG TABLET (FP) PO SCH (22:05)
[2019-08-21] MEDS: LURASIDONE HCL 40 MG TABLET PO SCH (22:05)
[2019-08-22] MEDS ORDERED: METHADONE HCL 5 MG TABLET (FOR DETOX USE ONLY) PO ONE (06:00)
[2019-08-22] MEDS: clonazePAM 0.5 MG TABLET PO PRN (06:16)
--- NOTE | 2019-08-22 08:54 | DS ---
[facility] Detox Discharge Summary Admission Date: 08/17/19 Discharge Date: 08/22/19 - History Present History: Opioid Dependence - Physical Exam Results Vital Signs: Vital Signs Temperature 97.9 F 08/22/19 06:00 Pulse Rate 58 L 08/22/19 06:00 Respiratory Rate 18 08/22/19 06:00 Blood Pressure 96/57 L 08/22/19 06:00 O2 Sat by Pulse Oximetry (%) Pertinent Admission Physical Exam Findings: pt arrived in withdrawals Vital Signs Temperature 97.9 F 08/22/19 06:00 Pulse Rate 58 L 08/22/19 06:00 Respiratory Rate 18 08/22/19 06:00 Blood Pressure 96/57 L 08/22/19 06:00 O2 Sat by Pulse Oximetry (%) Laboratory Tests 08/18/19 08/18/19 08/18/19 07:00 07:00 07:00 WBC 4.7 RBC 4.11 Hgb 12.9 Hct 38.1 MCV 92.6 MCH 31.4 MCHC 33.9 RDW 13.6 Plt Count 212 MPV 9.4 Sodium 143 Potassium 4.3 Chloride 110 H Carbon Dioxide 30 Anion Gap 3 L BUN 21.0 H Creatinine 1.1 Est GFR (CKD-EPI)AfAm 90.88 Est GFR (CKD-EPI)NonAf 78.41 Random Glucose 84 Calcium 9.1 Total Bilirubin 0.2 AST 14 L ALT 22 Alkaline Phosphatase 63 Total Protein 6.1 L Albumin 3.4 RPR Titer Nonreactive pt arrived in withdrawals aaox3 ambulating no acute distress - Treatment Hospital Course: Detox Protocol Followed, Detoxed Safely, Responded well, Discharged Condition Good, Rehab Referral Accepted Patient has Accepted a Rehab Referral to: pt declined; referral provided - Medication Discharge Medications: Ambulatory Orders Albuterol Sulfate Inhaler - [Ventolin HFA Inhaler -] 1 - 2 inh PO QID PRN #1 inhaler 04/27/19 Lurasidone HCl [Latuda] 40 mg PO HS 08/17/19 Mirtazapine [Remeron -] 15 mg PO HS 08/17/19 - Diagnosis (1) Bipolar 1 disorder Current Visit: Yes Status: Acute (2) Depression Current Visit: Yes Status: Acute (3) Opioid use disorder Current Visit: Yes Status: Acute (4) Substance-induced anxiety disorder Current Visit: Yes Status: Acute (5) Substance-induced sleep disorder Current Visit: Yes Status: Acute (6) Tobacco use disorder Current Visit: Yes Status: Chronic (7) Uncomplicated opioid dependence Current Visit: Yes Status: Chronic (8) Arthritis Current Visit: Yes Status: Chronic (9) Bipolar II disorder Current Visit: Yes Status: Chronic (10) Nicotine dependence Current Visit: Yes Status: Chronic Qualifiers: Nicotine product type: cigarettes Substance use status: uncomplicated Qualified Code(s): F17.210 - Nicotine dependence, cigarettes, uncomplicated (11) Acute wheezy bronchitis Current Visit: No Status: Acute (12) Ankle sprain Current Visit: No Status: Acute (13) Anxiety Current Visit: No Status: Acute (14) Bronchitis Current Visit: No Status: Acute (15) Bunion of great toe of right foot Current Visit: No Status: Acute (16) Chest pain Current Visit: No Status: Acute Qualifiers: Chest pain type: other chest pain Qualified Code(s): R07.89 - Other chest pain; R07.8 - Other chest pain (17) Diarrhea Current Visit: No Status: Acute (18) Knee pain Current Visit: No Status: Acute Qualifiers: Chronicity: chronic Laterality: left Qualified Code(s): M25.562 - Pain in left knee; G89.29 - Other chronic pain (19) Metatarsal stress fracture of right foot Current Visit: No Status: Acute (20) Palpitations Current Visit: No Status: Acute (21) Sinusitis nasal Current Visit: No Status: Acute Qualifiers: Sinusitis location: frontal Chronicity: acute Recurrence: non-recurrent Qualified Code(s): J01.10 - Acute frontal sinusitis, unspecified (22) Strain of knee Current Visit: No Status: Acute Qualifiers: Encounter type: initial encounter Laterality: right Qualified Code(s): S86.911A - Strain of unspecified muscle(s) and tendon(s) at lower leg level, right leg, initial encounter - AMA Did Patient Leave Against Medical Advice: No
[2019-08-22 09:20] VITALS: BP 106/71; PULSE 92; TEMP 98.1
== END 2019-08-22 09:50 | disposition home or self-care (01) | DRG 897 ==
LOC: YASAS 15:45 → Y6N 20:36
PROVIDERS: ADMIT Allergy & Immunology; ATTEND Allergy & Immunology
PROC: HZ2ZZZZ Detoxification Services for Substance Abuse Treatment (ICD-10-PCS; principal; 2019-08-17)
DX: F11.23 Opioid dependence with withdrawal (principal); F31.89 Other bipolar disorder; F31.81 Bipolar II disorder; F19.280 Other psychoactive substance dependence with psychoactive substance-induced anxiety disorder; F19.282 Other psychoactive substance dependence with psychoactive substance-induced sleep disorder; F17.210 Nicotine dependence, cigarettes, uncomplicated; M13.862 Other specified arthritis, left knee; M25.562 Pain in left knee; G89.29 Other chronic pain
CPT/HCPCS: 36415; 80053; 85027; 86593; J0475

== ENCOUNTER 2022-04-17 13:20 | Emergency (ER) | payer BC, OTHER ==
[2022-04-17 13:47] VITALS: BP 144/97; PULSE 89; RESP 20; TEMP 98.4; BMI 33.5
== END 2022-04-17 14:29 | disposition home or self-care (01) ==
LOC: JERFT 13:20
DX: H61.21 Impacted cerumen, right ear (principal)
CPT/HCPCS: 99282-25

== ENCOUNTER 2022-09-29 15:28 | Emergency (ER) | payer BC ==
[2022-09-29 15:42] VITALS: BP 146/98; PULSE 88; RESP 17; TEMP 98.8; BMI 32.1
== END 2022-09-29 17:14 | disposition home or self-care (01) ==
LOC: JERFT 15:28
DX: S93.492A Sprain of other ligament of left ankle, initial encounter (principal); X50.0XXA Overexertion from strenuous movement or load, initial encounter
CPT/HCPCS: 73610-TC-LT-FY; 73630-TC-LT; 99283-25

== ENCOUNTER 2022-11-13 12:22 | Emergency (ER) | payer OTHER, BC ==
[2022-11-13 12:28] VITALS: BP 128/87; PULSE 83; RESP 16; TEMP 98.3; BMI 31.6
== END 2022-11-13 13:43 | disposition home or self-care (01) ==
LOC: JERFT 12:22
DX: M25.561 Pain in right knee (principal)
CPT/HCPCS: 73562-TC-RT-FY; 99283-25

== ENCOUNTER 2022-11-18 17:22 | Emergency (ER) | payer BC, OTHER ==
[2022-11-18 18:00] VITALS: BP 109/88; PULSE 105; RESP 16; TEMP 98.2; BMI 32.1
[2022-11-18] MEDS ORDERED: IBUPROFEN 600 MG TABLET (FP) PO ONE ×2 (18:44→18:58)
== END 2022-11-18 18:59 | disposition home or self-care (01) ==
LOC: JERFT 17:22
DX: M25.561 Pain in right knee (principal)
CPT/HCPCS: 99283-25